=== PATIENT | male | born 1955 | race Hispanic/Latino ===

== ENCOUNTER 2017-06-19 10:53 | Outpatient (CLI) | payer BC, OTHER ==
[2017-06-19 11:03] LABS: Bilirubin Negative (Negative); Blood, Urine Small (Negative); Clarity Clear (Clear); Glucose, Urine (Dipstick) Negative (Negative); Leukocyte Negative (Negative); Nitrite Negative (Negative); Protein, Urine (Dipstick) Negative (Neg-Trace); Urobilinogen 0.2 mg/dL (0.2-1.0); pH, Urine 5.5 (5.0-9.0)
[2017-06-19 11:09] LABS: Specific Gravity, Urine 1.001 (1.002-1.036)
[2017-06-19 11:12] LABS: Bacteria/HPF Rare-Few HPF (None Seen); RBC/HPF 0-3 HPF (0-3); Squamous Epithelial 0-3 HPF (0-3); WBC/HPF 0-3 HPF (0-3)
== END 2017-06-19 10:54 | disposition home or self-care (01) ==
LOC: MADLABBHPM 10:53
PROVIDERS: ATTEND Family Medicine
DX: R31.29 Other microscopic hematuria (principal)
CPT/HCPCS: 36415; 81001

== ENCOUNTER 2017-09-30 07:04 | Outpatient (CLI) | payer OTHER ==
[2017-09-30 07:44] LABS: Hemoglobin 15.2 g/dL (14.0-18.0)
== END 2017-09-30 07:05 | disposition home or self-care (01) ==
LOC: MADLABBHPM 07:04
PROVIDERS: ATTEND Urology
DX: R79.89 Other specified abnormal findings of blood chemistry (principal)
CPT/HCPCS: 36415; 82670; 84403; 85014; 85018

== ENCOUNTER 2017-11-19 07:04 | Outpatient (CLI) | payer OTHER ==
[2017-11-19 07:38] LABS: Hemoglobin 14.9 g/dL (14.0-18.0)
== END 2017-11-19 07:05 | disposition home or self-care (01) ==
LOC: MADLABBHPM 07:04
PROVIDERS: ATTEND Urology
DX: R79.89 Other specified abnormal findings of blood chemistry (principal)
CPT/HCPCS: 36415; 82670; 84403; 85014; 85018

== ENCOUNTER 2025-03-16 07:26 | Outpatient (CLI) | payer MEDICARE ==
[2025-03-16 08:06] LABS: Hematocrit 48.4 % (42.0-52.0); Hemoglobin 15.1 g/dL (14.0-18.0)
[2025-03-16 12:55] LABS: Albumin (w/Testosterone Panel) 4.50 g/dL
== END 2025-03-16 07:27 | disposition home or self-care (01) ==
LOC: MADLAB 07:26
PROVIDERS: ATTEND Nurse Practitioner Family
DX: R79.89 Other specified abnormal findings of blood chemistry (principal)
CPT/HCPCS: 36415; 82670; 84270; 84403; 85014; 85018; G0103

== ENCOUNTER 2025-04-13 10:11 | Outpatient (CLI) | payer MEDICARE ==
[2025-04-13 10:34] LABS: Hematocrit 47.0 % (42.0-52.0); Hemoglobin 14.6 g/dL (14.0-18.0)
[2025-04-13 15:43] LABS: Albumin (w/Testosterone Panel) 4.5 g/dL
[2025-04-13 16:34] LABS: Testosterone, Free 117.8 pg/mL (47-244)
== END 2025-04-13 10:12 | disposition home or self-care (01) ==
LOC: MADLAB 10:11
PROVIDERS: ATTEND Nurse Practitioner Family
DX: R79.89 Other specified abnormal findings of blood chemistry (principal); R31.29 Other microscopic hematuria
CPT/HCPCS: 36415; 82670; 84153; 84270; 84403; 85014; 85018